=== PATIENT | female | born 1970 | race Caucasian/White ===

== ENCOUNTER 2016-10-27 07:58 | Emergency (ER) | payer OTHER ==
[2016-10-27 08:18] VITALS: BP 148/100
--- NOTE | 2016-10-27 08:33 | EDM.PDOC ---
ED HPI GENERAL MEDICAL PROBLEM - General Chief Complaint: Skin Complaint Stated Complaint: POSSIBLE SHINGLES Time Seen by Provider: 10/27/16 08:30 Source of Information: Reports: Patient, Family History Limitations: Reports: No Limitations - History of Present Illness INITIAL COMMENTS - FREE TEXT/NARRATIVE: pt arrived with pain in her left rib cage area and this come around to the abdoman. In the last 36 hours she has began to break out in a rash. She did have pain ahead of the rash. She was treating it as a muscle strain prior to noting the rash. She has not had shingles before. Onset: Other ( In the last 36 hours. ) Duration: Hour(s):, Getting Worse Location: Reports: Chest, Abdomen, Back, Other ( Rash comes around from the back on the rib cage and abdoman. ) Quality: Reports: Sharp, Stabbing Severity: Moderate Associated Symptoms: Reports: No Other Symptoms - Related Data Allergies Allergy/AdvReac Type Severity Reaction Status Date / Time amoxicillin Allergy Rash Verified 10/27/16 08:18 Penicillins Allergy Rash Verified 10/27/16 08:18 Home Meds: Home Meds Estrogens, Conjugated [Premarin] 10/27/16 [History] Levothyroxine Sodium [Synthroid] 75 mg PO 10/27/16 [History] Past Medical History Cardiovascular History: Reports: Hypertension [employer] History: Reports: Endocrine/Metabolic History: Reports: Hypothyroidism - Infectious Disease History Infectious Disease History: Reports: Chicken Pox - Past Surgical History GI Surgical History: Reports: Appendectomy Female Surgical History: Reports: Hysterectomy Social & Family History - Tobacco Use Smoking Status *Q: Never Smoker - Caffeine Use Caffeine Use: Reports: Coffee - Recreational Drug Use Recreational Drug Use: No ED ROS GENERAL - Review of Systems Review Of Systems: See Below Constitutional: Reports: No Symptoms HEENT: Reports: No Symptoms Respiratory: Reports: No Symptoms Cardiovascular: Reports: No Symptoms Endocrine: Reports: No Symptoms GI/Abdominal: Reports: Other ( Pt has pain coming around from the back to the abdoman. ) : Reports: No Symptoms Musculoskeletal: Reports: No Symptoms Skin: Reports: Rash ED EXAM, SKIN/RASH Exam: See Below Text/Narrative:: pt has a rash which starts in her back area, comes around the rib cage and down onto the abdoman. She had pain ahead of the rash. Exam Limited By: No Limitations General Appearance: Alert, Moderate Distress Ears: Normal TMs Nose: Normal Inspection Throat/Mouth: Normal Inspection Head: Atraumatic Neck: Normal Inspection Respiratory/Chest: No Respiratory Distress Cardiovascular: Regular Rate, Rhythm GI/Abdominal: Soft, Non-Tender (Female) Exam: Deferred Rectal (Female) Exam: Deferred Back Exam: Normal Inspection Extremities: Normal Inspection Neurological: Alert, Oriented, Normal Cognition Psychiatric: Normal Affect Skin: Rash, Zoster-Like Rash Location, Skin: Chest, Abdomen, Back Characteristics: Vesicular Associated features: Tenderness Course - Vital Signs Last Recorded V/S: Last Vital Signs Temp 36.1 C 10/27/16 08:20 Pulse 78 10/27/16 08:20 Resp 16 10/27/16 08:20 BP 148/100 H 10/27/16 08:20 Pulse Ox 99 10/27/16 08:20 Departure - Departure Time of Disposition: 08:34 Disposition: Home, Self-Care 01 Condition: Fair Clinical Impression: Herpes zoster - Discharge Information Instructions: Shingles, [id number] Referrals: PCP,None [Primary Care Provider] - Forms: ED Department Discharge Care Plan Goals: follow up with regular physian in 1 wek to 10 days. Zovirax 400mg 5 times daily for the next 5 days. Predisone 30mg x2 days and taper from there over 5-6 days as directed. norco 5/325 1 tab q6h as needed for severe pain, motrin 600mg q6h for milder pain.
== END 2016-10-27 08:56 | disposition home or self-care (01) ==
LOC: JP.ED 07:58
DX: B02.9 Zoster without complications (principal); I10 Essential (primary) hypertension; E03.9 Hypothyroidism, unspecified; Z90.49 Acquired absence of other specified parts of digestive tract; Z90.710 Acquired absence of both cervix and uterus; Z88.1 Allergy status to other antibiotic agents; Z88.0 Allergy status to penicillin; Z79.899 Other long term (current) drug therapy
CPT/HCPCS: 99283